=== PATIENT | female | born 1985 | race Caucasian/White ===

== ENCOUNTER 2016-08-29 09:10 | Outpatient (CLI) | payer OTHER ==
[2016-08-29 09:36] VITALS: BMI 37.8
--- NOTE | 2016-08-29 10:58 | US ---
LIMITED OB ULTRASOUND HISTORY: Assess CY, size greater than dates, 36 weeks 6 days. Limited obstetric sonography was performed. FINDINGS: INTRAUTERINE GESTATION: Single live intrauterine gestation in vertex orientation, heart rate 157beats per minute. CY: 23.8 cm, towards upper limits of normal, approaching the 95th percentile. This is increased from 21.2 cm on 08/22/2016. IMPRESSION: Single live imaging gestation in vertex orientation. Limited sonography for purposes of determining CY, 23.8 cm, at upper normal limits, nearing the 95th percentile. A message was left with the [facility] on the date of exam at 1054 hours to ensure receipt of these findings.
== END 2016-08-29 11:02 | disposition home or self-care (01) ==
LOC: FBCOUT 09:10 → FBC 09:10 → FBCOUT 11:02
PROVIDERS: ATTEND Family Medicine
DX: O40.3XX0 Polyhydramnios, third trimester, not applicable or unspecified (principal); Z3A.36 36 weeks gestation of pregnancy; O26.893 Other specified pregnancy related conditions, third trimester; N02.9 Recurrent and persistent hematuria with unspecified morphologic changes; N20.0 Calculus of kidney

== ENCOUNTER 2016-09-02 13:56 | Outpatient (CLI) | payer OTHER | END 2016-09-02 14:50 | disposition home or self-care (01) | LOC: FBC 13:56 → FBCOUT 13:56 | PROVIDERS: ATTEND Family Medicine | DX: O40.9XX0 Polyhydramnios, unspecified trimester, not applicable or unspecified (principal); Z3A.00 Weeks of gestation of pregnancy not specified ==

== ENCOUNTER 2016-09-05 08:55 | Outpatient (CLI) | payer OTHER ==
[2016-09-05 09:25] VITALS: BMI 36.1
== END 2016-09-05 09:53 | disposition home or self-care (01) ==
LOC: FBCOUT 08:55 → FBC 09:09 → FBCOUT 09:53
PROVIDERS: ATTEND Family Medicine
DX: O40.9XX0 Polyhydramnios, unspecified trimester, not applicable or unspecified (principal); Z3A.00 Weeks of gestation of pregnancy not specified

== ENCOUNTER 2016-09-24 14:11 | Inpatient (IN) | payer OTHER ==
[2016-09-24 14:37] VITALS: BMI 37.4
[2016-09-24] MEDS ORDERED: LACTATED RINGERS 1,000 ML ONE (16:31)
[2016-09-24] MEDS ORDERED: MINERAL OIL 25 ML BOT ONE (16:31)
[2016-09-24] MEDS ORDERED: PUMP TUBING ONE (16:31)
[2016-09-24] MEDS ORDERED: LIDOCAINE 1% (PRES FREE) 30 ML VIAL ONE (16:31)
[2016-09-24] MEDS ORDERED: IV START KIT ONE (16:31)
[2016-09-24] MEDS ORDERED: LIDOCAINE Viscous 2% 15 ML UDCUP ONE (16:31)
[2016-09-24] MEDS ORDERED: OXYTOCIN 10 UNITS/ML VIAL ONE (16:31)
[2016-09-24] MEDS ORDERED: OXYTOCIN IN LR 500 ML IV ONE ×2 (16:32→16:39)
[2016-09-24] MEDS ORDERED: PENICILLIN G POTASSIUM 5 MMU in NS 0.9% (MINI-BAG PLUS) 100 ML IV ONE (16:39)
[2016-09-24] MEDS ORDERED: LACTATED RINGERS 1,000 ML IV SCH ×2 (16:45→19:30)
[2016-09-24] MEDS: LACTATED RINGERS 1,000 ML IV PRN ×3 (16:57→20:06)
[2016-09-24] MEDS ORDERED: PENICILLIN G POTASSIUM 5 MMU VIAL ONE (17:07)
[2016-09-24] MEDS ORDERED: NS 0.9% (MINI-BAG PLUS) 100 ML IV ONE (17:07)
[2016-09-24] MEDS ORDERED: FENTANYL/ROPIVACAINE EPIDURAL 250 ML EP ONE (17:47)
[2016-09-24] MEDS ORDERED: EPIDURAL PUMP SET ONE (17:47)
[2016-09-24 17:50] LABS: HEMATOCRIT 33.5 % (37.0-47.0); HEMOGLOBIN 11.1 gm/l (12.0-16.0); MEAN CORPUSCULAR HEMOGLOBIN 27.8 pg (27.0-31.0); MEAN CORPUSCULAR HGB CONC 33.1 g/dl (33.0-37.0); RED CELL DISTRIBUTION WIDTH 13.9 % (11.5-14.5)
[2016-09-24] MEDS ORDERED: SODIUM CHLORIDE 0.9% FLUSH 10 ML ONE (18:46)
--- NOTE | 2016-09-24 18:54 | PCMAN ---
OB Admission Note - History : 2 Term: 1 : 0 Abortions (S&E): 0 Livin Gestational Age (weeks): 40 Days (#/7): 3 Admit Cervical Dilation:: 7 Admit Cervical Effacement (%):: 90 Admit Station:: -1 Admit Presentaton:: vertex Membrane Status: Ruptured Rupture (Date): 09/24/16 Rupture (Time): 16:52 Membranes Comment:: meconium Labor Onset (Date): 09/24/16 Labor Onset (Time): 15:09 Contraction Frequency:: 2-3.5 minutes Heart Rate:: 120 ( MOderate variability. Accs. to 150's. SOme VD's to 90' s lasting 30secs or less good recovery to baseline. SOme earlies to 100's/.) Status:: stable Summary of Course:: S: 31 y/o female @ 40 4/7 wks GA by LMP c/w 20 wk U/S> Giving her an MARYANN of 09/20/16. complicated by obesity, MJ use early in , kidney stones, rubella non-immune and transitional polyhydramnios. Pt. presented to L&D w/ possible SROM @ 1300. Possible meconium stained. Was evaluated and found to be vero and when rechecked had changed 1cm in an hour so she was admitted for early labor and started PCN. +FM, NO RODRIGUES's or visual changes. - Labs Blood Type: A (+) positive (ANtibody ngtv) Hct/Hgb:: 10.2/31.6 Rubella Status: Non-immune GBS Status: Positive Abnormal Labs: Rubella Non-Immune/Equivocal - Physical Exam General: Moderate Distress Neurological: Alert HEENT: EOMI, Mucous membr. moist/pink Lungs: Clear to Auscultation Bilaterally Cardiovascular: Regular Rate and Rhythm Genitourinary: Normal Female Genitalia Skin: Normal Color, Warm - Problems (1) Normal labor Status: Acute Code: [id number]/Plan: 31 y/o femal;e @ 40 4/7 wks GA in active labor support labor, has dula wants to hold off on epidural as much as possible GBS prophylaxis Utox. given hx. of MJ use early in and also one time use in the 3rd trimester Will need PP MMR
[2016-09-24] MEDS: FENTANYL/ROPIVACAINE EPIDURAL 250 ML EP SCH (19:10)
[2016-09-24] MEDS ORDERED: ROPIVACAINE 0.5% 30 ML VIAL ONE (19:29)
[2016-09-24] MEDS ORDERED: EPIDURAL PROCEDURE TRAY ONE (19:29)
[2016-09-24] MEDS ORDERED: EPHEDRINE SULFATE 50 MG/ML 1ML VIAL IV PRN (19:30)
[2016-09-24] MEDS ORDERED: SODIUM CHLORIDE 0.9% 500 ML IV PRN (19:30)
[2016-09-24] MEDS ORDERED: LACTATED RINGERS 500 ML IV PRN (19:30)
[2016-09-24] MEDS ORDERED: NALBUPHINE HCL 20 MG/ML AMP IV PRN (19:30)
[2016-09-24] MEDS ORDERED: DIPHENHYDRAMINE HCL 50 MG/1 ML VIAL IV PRN (19:30)
[2016-09-24] MEDS ORDERED: NALOXONE HCL 0.4 MG/ML VIAL IV PRN (19:30)
[2016-09-24] MEDS ORDERED: METOCLOPRAMIDE HCL 5 MG/ML 2ML VIAL IV PRN (19:30)
[2016-09-24] MEDS ORDERED: ONDANSETRON 4 MG/2ML 2 ML VIAL IV PRN (19:30)
[2016-09-24] MEDS ORDERED: PENICILLIN G 3 MIL UNIT PREMIX 50 ML IV ONE (20:28)
[2016-09-24] MEDS: PENICILLIN G 3 MIL UNIT PREMIX 3 MMU in Premix (D5W) 50 ml 1 EACH IV SCH (20:55)
[2016-09-24 21:54] LABS: AMPHETAMINES/METHAMPHETAMINES NEGATIVE (NEGATIVE); COCAINE NEGATIVE (NEGATIVE); MARIJUANA NEGATIVE (NEGATIVE); METHADONE NEGATIVE (NEGATIVE); OPIATES NEGATIVE (NEGATIVE); TRICYCLIC ANTIDEPRESSANTS NEGATIVE (NEGATIVE)
[2016-09-25] MEDS ORDERED: PENICILLIN G 3 MIL UNIT PREMIX 50 ML IV ONE ×2 (00:37→04:18)
[2016-09-25] MEDS: PENICILLIN G 3 MIL UNIT PREMIX 3 MMU in Premix (D5W) 50 ml 1 EACH IV SCH (00:51)
[2016-09-25] MEDS: LACTATED RINGERS 1,000 ML IV PRN (00:51)
[2016-09-25] MEDS ORDERED: OXYTOCIN IN LR 500 ML IV PRN (02:02)
[2016-09-25] MEDS ORDERED: LACTATED RINGERS 1,000 ML IV SCH (02:15)
--- NOTE | 2016-09-25 02:15 | PDOC36 ---
Provider Note Subject: S: Pt. comfortable s/p Epidural. Has been undergoing multiple positional changes for OT presentation. O: VSS cvx: /0 direct OP ctxs: prior to IUPC Q 4-6min FHT: BL 130 w/ moderate variability. accs. 150-155. NO VD or LD MVU=85 A/P: 31 y/o @ 40 5/7 wks GA with direct OP presentation delaying her progress pt. willing to get on all fours to open up the pelvis In adequate MVU start Pitocin administration SROM time 10hrs continue to observe for sepsis has been given 3 doses of penicillin
--- NOTE | 2016-09-25 05:23 | PDOC36 ---
Provider Note Subject: S: Comfortable w/ LEP even though can still feel the ctxs. ON 7mU of pitocin O: VSS-afebrile rechecked orally and axillary. cvx: Rim/0/0 LOP FHT: BL up to 140. Minimal to moderate variability. Acc. to 170-180 2ry to scalp stimulation. Early X 3 to 120 w/ adequate recovery to BL. NO LD. [place]: MVU 215 ctxs Q 3 min A/P: 31 y/o female @ 40 5/7 wks GA in active labor. Prolonged 1st stage due to OP presentation but has made cervical change. MVU appropriate.HR has shifted up but no evidence of infection. Continue to work on positional changes. Monitor closely for fever. If HR continues to rise treat w/ Tylenol. Fetus shows signs of adequate oxygenation and appropriate to continue with plan to attempt vaginal delivery at this time.
[2016-09-25] MEDS ORDERED: ACETAMINOPHEN 500 MG TABLET PO ONE (05:46)
[2016-09-25] MEDS ORDERED: MINERAL OIL 25 ML BOT PO ONE (06:21)
[2016-09-25] MEDS ORDERED: MEASLES,MUMPS&RUBELLA VACCINE 0.5 ML VIAL SUB-Q V ONE (06:49)
[2016-09-25] MEDS ORDERED: LANOLIN 50 APPLIC/7G TUBE TP PRN ×2 (06:49→07:54)
[2016-09-25] MEDS ORDERED: IBUPROFEN 800 MG TABLET PO PRN (06:49)
[2016-09-25] MEDS ORDERED: HYDROCODONE/ACETAMINOPHEN 5/325MG TABLET PO PRN (06:49)
[2016-09-25] MEDS ORDERED: DOCUSATE SODIUM 100 MG CAPSULE PO PRN ×2 (06:49→07:54)
[2016-09-25] MEDS ORDERED: BENZOCAINE/MENTHOL 60 APPLIC/BOT TP PRN ×2 (06:49→07:54)
--- NOTE | 2016-09-25 07:18 | PCMDEL ---
Delivery Note - Labor 1st stage (hr/min):: 28/08 2nd stage (hr/min):: 07/27 3rd stage (hr/min):: Total (hr/min):: - Delivery Delivery (Date): 09/25/16 Delivery (Time): 06:27 Gender: Female Presentation: Cephalic Position: OA Umbilical Cord: 3 Vessel Delayed Cord Clamping:: Not Performed Placenta:: intact EBL:: 150mL Perineum:: L labial tear Suture:: 3-0 vicryl Anesthesia/Meds:: LEP Length ROM:: 2700 Comments:: Floppy baby at delivery. Cord cut and taken to warmer. DeLee suctioned 1mL of meconium. CPAP given X 5 min due to retractions and mild respiratory distress. Responded well to these measures. Additional 3ml of thick meconium removed w/ orogastric tube and syringe. Apgars 5/7/9/
[2016-09-25] MEDS: IBUPROFEN 800 MG TABLET PO PRN ×3 (08:33→21:08)
[2016-09-25] MEDS ORDERED: OXYTOCIN IN LR 500 ML IV ONE ×2 (09:12)
[2016-09-25] MEDS ORDERED: PUMP TUBING ONE (09:12)
[2016-09-25] MEDS: HYDROCODONE/ACETAMINOPHEN 5/325MG TABLET PO PRN ×3 (09:22→19:28)
[2016-09-25] MEDS ORDERED: MISOPROSTOL 200 MCG TABLET PO ONE (09:45)
[2016-09-25] MEDS: LACTATED RINGERS 1,000 ML IV SCH ×3 (09:56→21:41)
[2016-09-25 10:42] LABS: HEMATOCRIT 29.7 % (37.0-47.0); HEMOGLOBIN 9.7 gm/l (12.0-16.0); MEAN CELL VOLUME 85.1 fl (81.0-99.0); MEAN CORPUSCULAR HEMOGLOBIN 27.8 pg (27.0-31.0); MEAN CORPUSCULAR HGB CONC 32.7 g/dl (33.0-37.0)
[2016-09-25] MEDS ORDERED: OXYCODONE HCL 5 MG TABLET PO PRN (12:01)
--- NOTE | 2016-09-25 12:42 | PDOC36 ---
Provider Note Subject: S: ASked to com3e in and asses pt. for continued bleeding and symptomatic hemorrhage. Pt. had already received 400ml of Pitocin bag and I had ordereed an additional 500ml bag and 800mg of MIsoprostil prior to this. Therefore, requested stat CBC and clot and screen to hold. BY the time I arrived pt. had stopped bleeding and no longer tachycardic or feeling cold or dizzy. O: BP 113/53; p=73 GEnpale but alert and mentating normally CV: RRR no m/r/g Lungs: CTA B H/H 9.7/29.7 A/P: 31 y/o female PP hemorrhage, most likely due to LGA baby and prolonged labor. Now stable and not actively bleeding. H/H low but stable at this point not requiering transfusion. Rwd. improtance of high Iron rich foods start Iron w / VItamin C supplementation
[2016-09-25] MEDS: FERROUS GLUCONATE (38 Fe) 324 MG TABLET PO SCH (14:55)
[2016-09-25] MEDS: ASCORBIC ACID 500 MG TABLET PO SCH (17:27)
[2016-09-26] MEDS: HYDROCODONE/ACETAMINOPHEN 5/325MG TABLET PO PRN ×2 (00:57→05:24)
[2016-09-26] MEDS: IBUPROFEN 800 MG TABLET PO PRN ×2 (03:36→12:45)
[2016-09-26] MEDS: LACTATED RINGERS 1,000 ML IV SCH (04:28)
[2016-09-26 06:59] LABS: HEMATOCRIT 20.8 % (37.0-47.0); HEMOGLOBIN 6.7 gm/l (12.0-16.0)
[2016-09-26] MEDS ORDERED: MEASLES,MUMPS&RUBELLA VACCINE 0.5 ML VIAL SUB-Q ONE (08:18)
[2016-09-26] MEDS: FENTANYL/ROPIVACAINE EPIDURAL 250 ML EP SCH ×2 (08:35→08:36)
[2016-09-26] MEDS: ASCORBIC ACID 500 MG TABLET PO SCH (08:42)
[2016-09-26] MEDS: FERROUS GLUCONATE (38 Fe) 324 MG TABLET PO SCH (08:42)
[2016-09-26 08:57] VITALS: BP 122/65
--- NOTE | 2016-09-26 09:37 | PDOC39B ---
Hospital Course: ADMIT DATE: 09/24/16 DISCHARGE DATE: 09/26/16 ADMISSION DIAGNOSES: obesity GBS positive PROCEDURES: ; L labial tear and repair HISTORY OF PRESENT ILLNESS: 31 year old G2 T1 L1 at 40 weeks 5 days presenting with SROM. Admitted. Sow progression of labor due to OP position. See HPI. HOSPITAL COURSE: The patient was admitted. Slow progression of labor due to OP position. initially w/o any complications. about 2hrs after delivery had significant post hemorrhage. Given Pitocin IV and oral misoprostil and bleeding controlled after this. By day of discharge the patient was ambulating, eating, voiding, and passing flatus without difficulty. Pain was controlled and lochia was appropriate. She was with out difficulty. She was significantly anemia and was sent home on [place] Iron along w/ her PNV. - Physical Exam Vital Signs: Temp Pulse Resp BP Pulse Ox 97.7 F 76 18 122/65 100 09/26/16 08:56 09/26/16 08:56 09/26/16 08:56 09/26/16 08:56 09/25/16 10:14 General: Afebrile Psych/Mental Status: Mood/Affect Appropriate, Judgment/Insight Intact, Bonding Well Neurological: Alert HEENT: Mucous membr. moist/pink Lungs: Clear to Auscultation Bilaterally, Normal Air Movement Cardiovascular: Regular Rate and Rhythm, Normal S1, Normal S2, No Murmur Breast: Soft Fundus: Firm, Below Umbilicus Abdomen: Normal Bowel Sounds Skin: Other (pale) - Discharge Diagnosis (1) care and examination of lactating mother Status: AcuteAssessment/Plan: Routine PP care f/u for 6wk PP check (2) Iron deficiency anemia Qualifiers: Iron deficiency anemia type: other iron deficiency Qualifier Code: ( D50.8) Other iron deficiency anemias Status: AcuteAssessment/Plan: significant anemia but asymptomatic start Iron rich diet along w/ Iron supplementation - Discharge Plan Disposition: Home Prescriptions: Docusate Sodium [COLACE 100 MG CAPSULE (SHF)] 100 mg PO DAILY PRN #60 PRN Reason: Constipation Ibuprofen [IBUPROFEN 800 MG TABLET (SHF)] 800 mg PO Q6H PRN #30 PRN Reason: Pain (Mild) FERROUS GLUCONATE (38 Fe) [IRON FERGON 325 MG TABLET (SHF)] 324 mg PO DAILY #90 Hydrocodone Bit/Acetaminophen [NORCO 5/325 MG TABLET (SHF)] 1 - 2 tab PO Q4H PRN #45 PRN Reason: Pain (Moderate) Follow-Up: Shira Wills MD [Staff Physician] - In 6 weeks (post check)
== END 2016-09-26 15:25 | disposition home or self-care (01) | DRG 774 ==
LOC: FBCOUT 14:11 → FBC 14:12 → FBCOUT 16:23 → FBC 16:24
PROVIDERS: ADMIT Family Medicine; ATTEND Family Medicine
PROC: 10E0XZZ Delivery of Products of Conception, External Approach (ICD-10-PCS; principal; 2016-09-25)
PROC: 0HQ9XZZ Repair Perineum Skin, External Approach (ICD-10-PCS; 2016-09-25)
DX: O70.0 First degree perineal laceration during delivery (principal); O72.1 Other immediate postpartum hemorrhage; O99.324 Drug use complicating childbirth; O99.214 Obesity complicating childbirth; F12.20 Cannabis dependence, uncomplicated; O99.824 Streptococcus B carrier state complicating childbirth; O99.02 Anemia complicating childbirth; D64.9 Anemia, unspecified; Z37.0 Single live birth; Z3A.40 40 weeks gestation of pregnancy

== ENCOUNTER 2016-10-03 09:01 | Outpatient (CLI) | payer OTHER | END 2016-10-03 09:02 | disposition home or self-care (01) | LOC: BABIESSH 09:01 | PROVIDERS: ATTEND Family Medicine | DX: Z39.1 Encounter for care and examination of lactating mother (principal) ==